=== PATIENT | female | born 1940 | race Hispanic/Latino ===

== ENCOUNTER 2021-10-13 11:20 | Emergency (ER) | payer MEDICARE ==
[~2021-10-13] VITALS: Ht 157.5 cm; Wt 67.6 kg
[2021-10-13] MEDS ORDERED: ACETAMINOPHEN 500 MG TABLET PO ONE (14:00)
[2021-10-13] MEDS ORDERED: ACET-66 PO (15:45)
[2021-10-13 15:50] VITALS: BP 156/49
== END 2021-10-13 16:08 | disposition home or self-care (01) ==
LOC: EDH 11:20
DX: S20.211A Contusion of right front wall of thorax, initial encounter (principal); S50.12XA Contusion of left forearm, initial encounter; S50.11XA Contusion of right forearm, initial encounter; M54.2 Cervicalgia; M25.511 Pain in right shoulder; E11.9 Type 2 diabetes mellitus without complications; W18.39XA Other fall on same level, initial encounter; Y93.89 Activity, other specified; Y92.512 Supermarket, store or market as the place of occurrence of the external cause; Y99.8 Other external cause status
CPT/HCPCS: 70450; 71100; 71101; 72125; 73090